=== PATIENT | female | born 1945 | race Caucasian/White ===

== ENCOUNTER 2016-11-05 07:28 | Day surgery (SDC) | payer MEDICARE, BC ==
[~2016-11-05 07:28] MED LIST: Lactated Ringers 1,000 ML IV SCH; Lidocaine 1%/Sod Bicarbonate in NS 8.4% 1 ML Syringe IV PRN; Sodium Chloride 0.9% 10 ML Syringe FLUSH PRN
[2016-11-05] MEDS ORDERED: Lidocaine 1% 2 ML SDV ONE (07:42)
[2016-11-05] MEDS ORDERED: fentaNYL 100 MCG/2 ML SDV ONE (07:42)
[2016-11-05] MEDS ORDERED: Midazolam 1 MG/ML 2 ML SDV ONE (07:42)
[2016-11-05] MEDS ORDERED: Propofol 200 MG/20 ML SDV ONE (07:42)
--- NOTE | 2016-11-05 07:55 | PCM.PREANE ---
Preanesthetic Assessment - Anesthesia/Transfusion/Family Hx Anesthesia History: Prior Anesthesia Without Reaction Type of Anesthesia Reaction: Excessive Nausea/Vomiting Family History of Anesthesia Reaction: No Transfusion History: No Prior Transfusion(s) Intubation History: Unknown - Review of Systems General: No Symptoms Pulmonary: No Symptoms Cardiovascular: No Symptoms (history of hypertension) Gastrointestinal: No symptoms (change in bowel habits noted.), Constipation Neurological: No Symptoms (history of stroke Sep 11, 2015/left leg drag and left pointer finger numbness noted as deficits. Patient states cognitive ability has been affected as well.), Headache, Numbness (both feet.), Gait Disturbance Other: Reports: Sinus Problem, Anxiety - Physical Assessment NPO Status Date: 11/04/16 NPO Status Time: 21:00 Pulse: 86 O2 Sat by Pulse Oximetry: 98 Respiratory Rate: 16 Blood Pressure: 145/73 Temperature: 36.7 C Vital Signs: Last Vital Signs Temp 36.7 C 11/05/16 07:33 Pulse 86 11/05/16 07:33 Resp 16 11/05/16 07:33 BP 145/73 H 11/05/16 07:33 Pulse Ox 98 11/05/16 07:33 Height: 1.65 m Weight: 61.825 kg ASA Class: 3 Mental Status: Alert & Oriented x3 Airway Class: Mallampati = 2 Dentition: Reports: Blackwell(s) Thyro-Mental Finger Breadths: 3 Mouth Opening Finger Breadths: 3 ROM/Head Extension: Full Lungs: Clear to auscultation, Normal respiratory effort Cardiovascular: Regular Rate, Regular Rhythm - Lab Values: Reviewed and noted. - Imaging/EKG Impressions: EKG: sinus rhythm rate =59. Unremarkable echocardiogram report noted. - Allergies Allergies/Adverse Reactions: Allergies Allergy/AdvReac Type Severity Reaction Status Date / Time codeine Allergy Unknown Vomiting Verified 11/04/16 15:42 hydromorphone HCl Allergy Unknown Adbominal Verified 11/04/16 15:42 [From Dilaudid] Upset, Diaphoresis, Nausea enoxaparin [From Lovenox] Allergy Cannot Verified 11/04/16 15:42 Remember hydrocodone Allergy Cannot Verified 11/04/16 15:42 Remember - Anesthesia Plan Pre-Op Medication Ordered: None - Acknowledgements Anesthesia Type Planned: MAC Pt an Appropriate Candidate for the Planned Anesthesia: Yes Alternatives and Risks of Anesthesia Discussed w Pt/Guardian: Yes Pt/Guardian Understands and Agrees with Anesthesia Plan: Yes PreAnesthesia Questionnaire HEENT History: Reports: Impaired vision, Other (see below) Other HEENT History: wears hearing aide and only 1 present on arrival Cardiovascular History: Reports: High cholesterol, Hypertension, Other (see below) Other Cardiovascular History: hypokalemia Respiratory History: Reports: None Gastrointestinal History: Reports: GERD Genitourinary History: Reports: Urinary incontinence, Other (see below) Other Genitourinary History: urgency - 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: Musculoskeletal History: Reports: Arthritis, Other (see below) Other Musculoskeletal History: carpal tunnel surgery, toe surgery Neurological History: Reports: Neuropathy, peripheral Psychiatric History: Reports: None Endocrine/Metabolic History: Reports: None Hematologic History: Reports: None Immunologic History: Reports: None Oncologic (Cancer) History: Reports: None Dermatologic History: Reports: None - Past Surgical History Head Surgeries/Procedures: HEENT Surgical History: Reports: Tonsillectomy GI Surgical History: Reports: Appendectomy, Cholecystectomy, Colonoscopy Female Surgical History: Reports: Hysterectomy, Oophorectomy Musculoskeletal Surgical History: Reports: Other (see below) Other Musculoskeletal Surgeries/Procedures:: back surgery - SUBSTANCE USE Smoking Status *Q: Never Smoker Days Per Week of Alcohol Use: 0 Recreational Drug Use History: No - HOME MEDS Home Medications: Home Meds Rosuvastatin Calcium [Crestor] 20 mg PO DAILY 03/23/14 [History] Pantoprazole [Protonix] 40 mg PO DAILY 09/11/15 [History] Aspirin [Halfprin] 81 mg PO DAILY 11/07/15 [History] Cholecalciferol (Vitamin D3) [Vitamin D3] 1,000 unit PO DAILY 11/04/16 [History] Cranberry Conc/C/Bacill Coag [Cranberry Tablet] 2 tab PO DAILY 11/04/16 [History ] Lisinopril/Hydrochlorothiazide [Lisinopril-Hctz 10-12.5 mg Tab] 1 tab PO DAILY 11/04/16 [History] Mirabegron [Myrbetriq] 25 mg PO DAILY 11/04/16 [History] Phenylephrine HCl [Hemorrhoidal Suppository] 1 supp RECTAL ASDIRECTED PRN [History] Potassium Chloride 10 meq PO DAILY 11/04/16 [History] - CURRENT (IN HOUSE) MEDS Current Meds: Current Medications Lactated Ringer's (Ringers, Lactated) 1,000 mls @ 125 mls/hr IV ASDIRECTED SAIDA Lidocaine/Sodium Bicarbonate (Buffered Lidocaine 1% In Ns 8.4%) 0.25 ml IV ONETIME PRN PRN Reason: Prior to IV Start Sodium Chloride (Saline Flush) 10 ml FLUSH ASDIRECTED PRN PRN Reason: Keep Vein Open Discontinued Medications Fentanyl (Sublimaze) Confirm Administered Dose 100 mcg .ROUTE .STK-MED ONE Stop: 11/05/16 07:43 Lidocaine HCl (Lidocaine 1%) Confirm Administered Dose 6 ml .ROUTE .STK-MED ONE Stop: 11/05/16 07:43 Midazolam HCl (Versed 1 Mg/Ml) Confirm Administered Dose 2 mg .ROUTE .STK-MED ONE Stop: 11/05/16 07:43 Propofol (Diprivan 20 Ml) Confirm Administered Dose 200 mg .ROUTE .STK-MED ONE Stop: 11/05/16 07:43 Preanesthetic Assessment - ANESTHESIA/TRANSFUSION/FAMILY HX Anesthesia/Transfusion History: Prior Anesthesia Reaction Type of Anesthesia Reaction: Reports: Excessive Nausea/Vomiting - PHYSICAL ASSESSMENT O2 Sat by Pulse Oximetry: 98 RR: 16 Vital Signs: Last Vital Signs Temp 36.7 C 11/05/16 07:33 Pulse 86 11/05/16 07:33 Resp 16 11/05/16 07:33 BP 145/73 H 11/05/16 07:33 Pulse Ox 98 11/05/16 07:33 Height: 1.65 m Weight: 68.175 kg - ALLERGIES Allergies/Adverse Reactions: Allergies Allergy/AdvReac Type Severity Reaction Status Date / Time codeine Allergy Unknown Vomiting Verified 11/04/16 15:42 hydromorphone HCl Allergy Unknown Adbominal Verified 11/04/16 15:42 [From Dilaudid] Upset, Diaphoresis, Nausea enoxaparin [From Lovenox] Allergy Cannot Verified 11/04/16 15:42 Remember hydrocodone Allergy Cannot Verified 11/04/16 15:42 Remember
--- NOTE | 2016-11-05 09:37 | PCM.OPNOTE ---
- General Post-Op/Procedure Note Date of Surgery/Procedure: 11/05/16 Operative Procedure(s): 1. EGD with gastric polypectomy x5 - using cold forceps , antral biopsy x2, and GE junction biopsy x2. 2.Colonsocopy with sigmoid polypectomy, and random rectal biopsy x2 - using cold forceps Findings: 1. multiple diminutive gastric polyps 2. sigmoid and descending colon diverticulosis 3. sigmoid polyp small < 5mm Pre Op Diagnosis: GERD symptoms with change in bowel habits Post-Op Diagnosis: 1. multiple diminutive gastric polyps. 2. diminutive sigmoid polyp. 3. descending, and sigmoid diverticulosis Anesthesia Technique: MAC, Moderate sedation Primary Surgeon: Wero Oro Pathology: 1. multiple gastric polyps, antral and GE junction biopsies 2. sigmoid polyp 3. rectal biopsies EBL in mLs: 1 Complications: None Condition: Good Free Text/Narrative:: After adequate IV sedation and analgesia was obtained the patient was placed on her left side. A lubricated upper endoscope was inserted through a bite-block into the esophagus and advanced under direct vision towards the stomach. Air was given here and I immediately saw several small glandular-type gastric polyps within the body of the stomach. The scope was advanced towards the antrum and into the duodenum. The second, and first parts of the duodenum were endoscopically normal with no inflammatory changes or mass lesions. The antrum likewise was unremarkable, but because of her history I took 2 random biopsies for histologic review. The polyps, which were seen in the body of stomach were all less than 5 mm in size. I removed 5 of them. There were a few smaller ones, which were left behind. In the retroflexed view there was no hiatal hernia. The fundus was unremarkable. The scope was withdrawn to the GE junction, which was normal. I took 2 random biopsies in this area for review. The body of the esophagus was endoscopically normal. [employer] photographs were taken for the patient and for the record. Air was removed, as I finished this procedure, which she tolerated well. Perianal inspection and digital rectal examination were performed next and were unremarkable. A lubricated colonoscope was inserted into the rectum and advanced to the cecum without difficulty. The bowel preparation was adequate. The cecum, right colon, transverse colons were endoscopically normal with no mass lesions seen. The descending colon had a few scattered diverticuli. The sigmoid had the most diverticuli, which were slightly larger and were associated with slight spasticity of the sigmoid with hypertrophied muscle. There were no inflammatory changes seen in these areas. There was a small, sigmoid polyp, which was removed with cold forceps. The rectum was unremarkable , but I took 2 random biopsies of the rectum for review. Electric[employer] photographs were taken for the patient and for the record. There were no procedural complications.
--- NOTE | 2016-11-05 09:41 | PCM48HPAN ---
Post Anesthesia Note - EVALUATION WITHIN 48HRS OF ANESTHETIC Vital Signs in Normal Range: Yes Patient Participated in Evaluation: Yes Respiratory Function Stable: Yes Airway Patent: Yes Cardiovascular Function Stable: Yes Hydration Status Stable: Yes Pain Control Satisfactory: Yes Nausea and Vomiting Control Satisfactory: Yes Mental Status Recovered: Yes
[2016-11-05 10:11] VITALS: BP 123/60
== END 2016-11-05 10:21 | disposition home or self-care (01) ==
LOC: JD.SDS 07:28
PROVIDERS: ATTEND Surgery
PROC: 0DB68ZZ Excision of Stomach, Via Natural or Artificial Opening Endoscopic (ICD-10-PCS; principal; 2016-11-05)
PROC: 0DBP8ZZ Excision of Rectum, Via Natural or Artificial Opening Endoscopic (ICD-10-PCS; 2016-11-05)
PROC: 0DBN8ZZ Excision of Sigmoid Colon, Via Natural or Artificial Opening Endoscopic (ICD-10-PCS; 2016-11-05)
DX: K31.7 Polyp of stomach and duodenum (principal); K29.50 Unspecified chronic gastritis without bleeding; K63.89 Other specified diseases of intestine; K62.89 Other specified diseases of anus and rectum; K57.30 Diverticulosis of large intestine without perforation or abscess without bleeding; M19.90 Unspecified osteoarthritis, unspecified site; I10 Essential (primary) hypertension; E78.00 Pure hypercholesterolemia, unspecified; E87.6 Hypokalemia; K59.00 Constipation, unspecified; Z86.73 Personal history of transient ischemic attack (TIA), and cerebral infarction without residual deficits; Z88.5 Allergy status to narcotic agent; Z88.6 Allergy status to analgesic agent; Z88.8 Allergy status to other drugs, medicaments and biological substances; Z79.82 Long term (current) use of aspirin; Z79.899 Other long term (current) drug therapy; Z90.49 Acquired absence of other specified parts of digestive tract; Z90.710 Acquired absence of both cervix and uterus; Z90.722 Acquired absence of ovaries, bilateral; Z90.89 Acquired absence of other organs; Z98.890 Other specified postprocedural states
CPT/HCPCS: 43239; 45380; 88305; J3010; J7120; 00810; J2250; J2704

== ENCOUNTER 2017-07-30 12:59 | Emergency (ER) | payer MEDICARE, BC, OTHER ==
--- NOTE | 2017-07-30 13:14 | EDM.PDOC ---
ED HPI GENERAL MEDICAL PROBLEM - General Chief Complaint: Chest Pain Stated Complaint: CHEST PAIN/LEFT ARM PAIN Time Seen by Provider: 07/30/17 13:13 - History of Present Illness INITIAL COMMENTS - FREE TEXT/NARRATIVE: 72-year-old female presents emergency room with chest pain. This chest pain is been on and off for the last several days this started on Thursday no 4 days ago and comes and goes. She cannot recall any specific activity that makes it worse. She has associated neck tightness and discomfort with this and at times she has pain into her left arm. The patient has had a stroke affecting her left side. Patient has no prior history of known coronary artery disease she's had chest pain in the past and has been evaluated for this. Is uncertain if she's had recent stress test. She hasn't had any new stroke. The patient became somewhat concerned about her overall situation took an extra baby aspirin at approximately 9 AM this morning. Other Treatments [employer]ICER: 162 mg asa Left Chest Pain Score (Numeric/FACES): 6 - Related Data Allergies Allergy/AdvReac Type Severity Reaction Status Date / Time codeine Allergy Unknown Vomiting Verified 11/05/16 07:56 hydromorphone HCl Allergy Unknown Adbominal Verified 11/05/16 07:56 [From Dilaudid] Upset, Diaphoresis, Nausea enoxaparin [From Lovenox] Allergy Cannot Verified 11/05/16 07:56 Remember hydrocodone Allergy Cannot Verified 11/05/16 07:56 Remember Home Meds: Home Meds Rosuvastatin Calcium [Crestor] 20 mg PO DAILY 03/23/14 [History] Pantoprazole [ProTONIX] 40 mg PO DAILY 09/11/15 [History] Aspirin [Halfprin] 81 mg PO DAILY 11/07/15 [History] Cholecalciferol (Vitamin D3) [Vitamin D3] 1,000 unit PO DAILY 11/04/16 [History] Lisinopril/Hydrochlorothiazide [Lisinopril-Hctz 10-12.5 mg Tab] 10 - 12.5 mg PO DAILY 11/04/16 [History] Sucralfate [Carafate] 1 gm PO QIDACANDBED #60 tablet 07/30/17 [Rx] Vitamin B Complex 1 each PO DAILY 07/30/17 [History] Past Medical History HEENT History: Reports: Impaired Vision, Other (See Below) Other HEENT History: wears hearing aide and only 1 present on arrival Cardiovascular History: Reports: High Cholesterol, Hypertension, Other (See Below) Other Cardiovascular History: hypokalemia Respiratory History: Reports: None Gastrointestinal History: Reports: GERD Genitourinary History: Reports: Urinary Incontinence, Other (See Below) Other Genitourinary History: urgency - after stroke in Aug 2015 [employer]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: Musculoskeletal History: Reports: Arthritis, Other (See Below) Other Musculoskeletal History: carpal tunnel surgery, toe surgery Neurological History: Reports: Neuropathy, Peripheral Psychiatric History: Reports: None Endocrine/Metabolic History: Reports: None Hematologic History: Reports: None Immunologic History: Reports: None Oncologic (Cancer) History: Reports: None Dermatologic History: Reports: None - Past Surgical History Musculoskeletal Surgical History: Reports: Other (See Below) Social & Family History - Family History Cardiac: Reports: Heart Failure, Hypertension Neurological: Reports: Alzheimers Disease, CVA Psychiatric: Reports: Other (See Below) Other Psychiatric Family History: alcoholism Endocrine/Metabolic: Reports: Diabetes, Type I Oncologic: Reports: Brain - Tobacco Use Smoking Status *Q: Never Smoker Years of Tobacco use: 2 - Alcohol Use Days Per Week of Alcohol Use: 0 - Recreational Drug Use Recreational Drug Use: No - Living Situation & Occupation Living situation: Reports: , with Spouse Occupation: Retired ED ROS GENERAL - Review of Systems Review Of Systems: See Below Constitutional: Reports: No Symptoms HEENT: Reports: No Symptoms Respiratory: Reports: No Symptoms, Other (Her pain does not appear to be pleuritic in nature) Cardiovascular: Reports: Chest Pain Endocrine: Reports: No Symptoms GI/Abdominal: Reports: No Symptoms : Reports: No Symptoms Neurological: Reports: Other (He hasdifficulty and chronic left sided weakness compared to the right but basically gets around pretty good) Psychiatric: Reports: No Symptoms Hematologic/Lymphatic: Reports: No Symptoms ED EXAM, GENERAL - Physical Exam Exam: See Below Exam Limited By: No Limitations General Appearance: Alert, No Apparent Distress Head: Atraumatic, Normocephalic Neck: Normal Inspection, Supple, Non-Tender, Full Range of Motion. No: Lymphadenopathy (L), Lymphadenopathy (R) Respiratory/Chest: No Respiratory Distress, Lungs Clear, Normal Breath Sounds, Other (She has some palpable chest wall discomfort over the left side of the sternum this seems to duplicate a lot of her discomfort) Cardiovascular: Regular Rate, Rhythm, No Edema, No Murmur GI/Abdominal: Normal Bowel Sounds, Soft, Non-Tender Back Exam: Normal Inspection, Other (She has some spasm and tightness in the spinous muscles of the surgical region also has some discomfort in to her musculature the goes from her neck and her shoulders.) Extremities: Normal Inspection, No Pedal Edema Neurological: Other (She has some mild left-sided weakness this is reported a her family is normal) Psychiatric: Normal Affect, Normal Mood EKG INTERPRETATION EKG Date: 07/30/17 Rhythm: NSR Waves: Normal P-Wave: Present QRS: Normal ST-T: Normal QT: Normal Comparison: No Change Course - Vital Signs Last Recorded V/S: Last Vital Signs Temp 36.5 C 07/30/17 13:12 Pulse 68 07/30/17 13:12 Resp 21 H 07/30/17 13:12 BP 140/69 07/30/17 13:36 Pulse Ox 97 07/30/17 13:12 - Orders/Labs/Meds Orders: Active Orders 24 hr Category Date Time Status EKG Documentation Completion [RC] STAT Care 07/30/17 13:29 Active Lactated Ringers [Ringers, Lactated] 1,000 ml Med 07/30/17 13:30 Active IV ASDIRECTED Nitroglycerin [Nitrostat] Med 07/30/17 13:27 Active 0.4 mg SL Q5M PRN Medication Orders Lactated Ringer's (Ringers, Lactated) 1,000 mls @ 50 mls/hr IV ASDIRECTED SAIDA Last Admin: 07/30/17 13:36 Dose: 50 mls/hr Nitroglycerin (Nitrostat) 0.4 mg SL Q5M PRN PRN Reason: Chest Pain Last Admin: 07/30/17 13:36 Dose: 0.4 mg Labs: Laboratory Tests 07/30/17 07/30/17 07/30/17 Range/Units 13:10 13:10 13:10 WBC 7.94 (3.98-10.04) K/mm3 RBC 4.69 (3.98-5.22) M/mm3 Hgb 13.9 (11.2-15.7) gm/L Hct 42.9 (34.1-44.9) % MCV 91.5 (79.4-94.8) fl MCH 29.6 (25.6-32.2) pg MCHC 32.4 (32.2-35.5) g/dl RDW Std Deviation 42.7 (36.4-46.3) fL Plt Count 303 (182-369) K/mm3 MPV 10.0 (9.4-12.3) fl Neutrophils % (Manual) 57 (40-60) % Band Neutrophils % 0 (0-10) % Lymphocytes % (Manual) 40 (20-40) % Atypical Lymphs % 0 % Monocytes % (Manual) 3 (2-10) % Eosinophils % (Manual) 0 L (0.7-5.8) % Basophils % (Manual) 0 L (0.1-1.2) Platelet Estimate Adequate RBC Morph Comment Normal PT 10.0 (8.0-13.0) SECONDS INR 0.92 APTT 28 (22-36) SECONDS Sodium 143 (136-145) mEq/L Potassium 3.7 (3.5-5.1) mEq/L Chloride 106 (98-107) mEq/L Carbon Dioxide 31 (21-32) mEq/L Anion Gap 9.7 (5-15) BUN 18 (7-18) mg/dL Creatinine 0.7 (0.55-1.02) mg/dL Est Cr Clr Drug Dosing 67.29 mL/min Estimated GFR (MDRD) > 60 (>60) mL/min BUN/Creatinine Ratio 25.7 H (14-18) Glucose 98 (80-115) mg/dL Calcium 9.6 (8.5-10.1) mg/dL Total Bilirubin 0.6 (0.2-1.0) mg/dL AST 13 L (15-37) U/L ALT 18 (14-59) U/L Alkaline Phosphatase 61 (46-116) U/L Troponin I < 0.017 (0.00-0.056) ng/mL Total Protein 7.0 (6.4-8.2) g/dl Albumin 3.9 (3.4-5.0) g/dl Globulin 3.1 gm/dL Albumin/Globulin Ratio 1.3 (1-2) Meds: Medications Generic Name Dose Route Start Last Admin Trade Name Freq PRN Reason Stop Dose Admin Lactated Ringer's 1,000 mls @ 50 mls/hr 07/30/17 13:30 07/30/17 13:36 Ringers, Lactated IV 50 mls/hr ASDIRECTED SAIDA Administration Nitroglycerin 0.4 mg 07/30/17 13:27 07/30/17 13:36 Nitrostat SL 0.4 mg Q5M PRN Administration Chest Pain Discontinued Medications Generic Name Dose Route Start Last Admin Trade Name Frecosme PRN Reason Stop Dose Admin Aspirin 162 mg 07/30/17 13:27 07/30/17 13:38 Aspirin PO 07/30/17 13:28 162 mg ONETIME ONE Administration Al Hydroxide/Mg Hydroxide 30 0 ml 07/30/17 14:13 07/30/17 14:26 ml/ Lidocaine HCl 15 ml PO 07/30/17 14:14 45 ml ONETIME ONE Administration - Re-Assessments/Exams Free Text/Narrative Re-Assessment/Exam: 07/30/17 14:09 Labs including a troponin negative chest x-ray normal, albeit somewhat rotated. We will try a GI cocktail as she is still having some epigastric discomfort however the pressure in the chest is gone. This resolved after a single nitroglycerin. 07/30/17 15:18 Patient had good improvement with GI cocktail. This fracture chest discomfort goes a little fits related to esophageal or gastrointestinal pathology but this is somewhat suspected I cannot exclude cardiovascular causes did discuss checking a second troponin the patient would like to go home. She needs to discuss with her primary provider when her last stress test was done because I'm not finding information she thinks it was done after her stroke. At this point we'll discharge home with Carafate to help with her stomach. Departure - Departure Time of Disposition: 15:20 Disposition: Home, Self-Care 01 Clinical Impression: Atypical chest pain, Dyspepsia Prescriptions: Sucralfate [Carafate] 1 gm PO QIDACANDBED #60 tablet Referrals: Milla Galaviz NP [Primary Care Provider] - Forms: ED Department Discharge Additional Instructions: Return to emergency room with any questions problems worsening symptoms. Follow-up with your regular provider this next week and discuss if another stress test is indicated and to clarify when your last one was done. Try heating pads to your Neck see if this helps. Sometimes alternating heat with ice works well. He been started on Carafate this has to be taken 4 times a day before each meal and at bedtime take your other routine medications at least an hour before the Carafate or 2 hours after the Carafate. Take your Protonix one hour before your morning meal. This may improve the overall effectiveness of this medication. - My Orders Last 24 Hours: My Active Orders 07/30/17 13:27 Nitroglycerin [Nitrostat] 0.4 mg SL Q5M PRN 07/30/17 13:29 EKG Documentation Completion [RC] STAT 07/30/17 13:30 Lactated Ringers [Ringers, Lactated] 1,000 ml IV ASDIRECTED - Assessment/Plan Last 24 Hours: My Active Orders 07/30/17 13:27 Nitroglycerin [Nitrostat] 0.4 mg SL Q5M PRN 07/30/17 13:29 EKG Documentation Completion [RC] STAT 07/30/17 13:30 Lactated Ringers [Ringers, Lactated] 1,000 ml IV ASDIRECTED
[2017-07-30] MEDS ORDERED: Nitroglycerin 0.4 MG Tab.SL SL PRN (13:27)
[2017-07-30] MEDS ORDERED: Aspirin 81 MG Tab.Chew PO ONE (13:27)
[2017-07-30] MEDS ORDERED: Lactated Ringers 1,000 ML IV SCH (13:30)
[2017-07-30 13:39] VITALS: BP 140/69
[2017-07-30] MEDS ORDERED: Alum Hydrox/Mag Hydrox/Simeth 30 ML, Lidocaine 2% 15 ML PO ONE ×2 (14:13)
--- NOTE | 2017-07-30 14:39 | CR ---
Chest: Portable view of the chest was obtained. Comparison: Prior chest x-ray of 11/07/15. Heart size is normal. Tortuous thoracic aorta is seen. Lungs are clear. Degenerative spurring is noted within the spine. Surgical clips are seen from prior cholecystectomy. Impression: 1. Nothing acute is appreciated on portable chest x-ray. Diagnostic code #2
== END 2017-07-30 15:45 | disposition home or self-care (01) ==
LOC: JD.ED 12:59
DX: R07.89 Other chest pain (principal); R10.13 Epigastric pain; I10 Essential (primary) hypertension; E78.00 Pure hypercholesterolemia, unspecified; K21.9 Gastro-esophageal reflux disease without esophagitis; Z79.82 Long term (current) use of aspirin; Z79.899 Other long term (current) drug therapy; Z88.5 Allergy status to narcotic agent; Z88.8 Allergy status to other drugs, medicaments and biological substances
CPT/HCPCS: 36415; 71010; 80053; 84484; 85025; 85610; 85730; 93005; 96360; 96361; 99285; A9270; J7120; 93010; 99284

== ENCOUNTER 2018-10-04 08:07 | Inpatient (IN) | payer MEDICARE, OTHER ==
[~2018-10-04 08:07] MED LIST changes: +Acetaminophen 325 MG Tab PO SCH; +Acetaminophen/HYDROcodone 325-5 MG Tab PO PRN; +Bisacodyl 5 MG Tab PO PRN; +Cyclobenzaprine 10 MG Tab PO PRN; +HYDROmorphone 1 MG/ML Syringe IVPUSH PRN; +Ketorolac 15 MG/ML SDV IVPUSH PRN; +Lidocaine 1%/Sod Bicarbonate in NS 8.4% 1 ML Syringe IDERM PRN; -Lidocaine 1%/Sod Bicarbonate in NS 8.4% 1 ML Syringe IV PRN; +Magnesium Hydroxide 400 MG/5 ML Susp 30 ML Cup PO PRN; +Ondansetron 4 MG/2 ML SDV IVPUSH PRN; +Pregabalin 25 MG Cap PO SCH; +Sennosides 8.6 MG Tab PO PRN; +oxyCODONE ER 10 MG TAB.ER PO SCH
[2018-10-04] MEDS ORDERED: EPINEPHrine 1 MG/ML SDV ONE (08:48)
[2018-10-04] MEDS ORDERED: Ropivacaine 0.5% 5 MG/ML 30 ML SDV ONE (08:49)
[2018-10-04] MEDS ORDERED: Lidocaine 1% 4 ML ONE ×2 (09:15→09:45)
[2018-10-04] MEDS ORDERED: Scopolamine 1.5 MG Transdermal Patch TOP ONE (09:18)
--- NOTE | 2018-10-04 09:23 | PCM.PREANE ---
Preanesthetic Assessment - Procedure Proposed Procedure: left reverse total shoulder - Anesthesia/Transfusion/Family Hx Anesthesia History: Prior Anesthesia Reaction Type of Anesthesia Reaction: Excessive Nausea/Vomiting Family History of Anesthesia Reaction: No Transfusion History: No Prior Transfusion(s) Intubation History: Unknown - Review of Systems General: No Symptoms Pulmonary: No Symptoms Cardiovascular: No Symptoms Gastrointestinal: Abdominal Pain (epigastric) Neurological: Other (stroke 2016-weakness left leg ) Other: Reports: Neck Pain (since stroke) - Physical Assessment NPO Status Date: 10/03/18 NPO Status Time: 18:00 O2 Sat by Pulse Oximetry: 97 Respiratory Rate: 16 Vital Signs: Last Vital Signs Temp 98.5 F 10/04/18 08:21 Pulse 81 10/04/18 08:21 Resp 16 10/04/18 08:21 BP 145/78 H 10/04/18 08:21 Pulse Ox 97 10/04/18 08:21 Height: 5 ft 4 in Weight: 68.492 kg ASA Class: 2 Mental Status: Alert & Oriented x3 Airway Class: Mallampati = 1 Dentition: Reports: Normal Dentition Thyro-Mental Finger Breadths: 3 Mouth Opening Finger Breadths: 3 ROM/Head Extension: Full Lungs: Clear to Auscultation, Normal Respiratory Effort Cardiovascular: Regular Rate, Regular Rhythm - Allergies Allergies/Adverse Reactions: Allergies Allergy/AdvReac Type Severity Reaction Status Date / Time enoxaparin [From Lovenox] Allergy Rash Verified 10/01/18 14:03 morphine Allergy Nausea and Verified 10/01/18 14:03 Vomiting potassium Allergy Cardiac Verified 10/01/18 14:03 Arrest codeine AdvReac Unknown Vomiting Verified 10/01/18 14:03 - Blood Blood Available: No - Acknowledgements Anesthesia Type Planned: General Anesthesia Pt an Appropriate Candidate for the Planned Anesthesia: Yes Alternatives and Risks of Anesthesia Discussed w Pt/Guardian: Yes Pt/Guardian Understands and Agrees with Anesthesia Plan: Yes PreAnesthesia Questionnaire HEENT History: Reports: Impaired Vision, Other (See Below) Other HEENT History: wears hearing aide and only 1 present on arrival Cardiovascular History: Reports: High Cholesterol, Hypertension, Other (See Below) Other Cardiovascular History: hypokalemia Respiratory History: Reports: None Gastrointestinal History: Reports: GERD Genitourinary History: Reports: Urinary Incontinence, Other (See Below) Other Genitourinary History: urgency - after stroke in Aug 2015 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: Musculoskeletal History: Reports: Arthritis, Other (See Below) Other Musculoskeletal History: carpal tunnel surgery, toe surgery Neurological History: Reports: CVA, Neuropathy, Peripheral Other Neuro History: right side with left side deficeit Psychiatric History: Reports: None, Anxiety, Depression Endocrine/Metabolic History: Reports: None Hematologic History: Reports: None Immunologic History: Reports: None Oncologic (Cancer) History: Reports: None Dermatologic History: Reports: None - Past Surgical History Head Surgeries/Procedures: Reports: None HEENT Surgical History: Reports: Tonsillectomy Respiratory Surgical History: Reports: None GI Surgical History: Reports: Appendectomy, Cholecystectomy, Colonoscopy Female Surgical History: Reports: Hysterectomy, Oophorectomy, Other (See Below) Other Female Surgeries/Procedures: bladder stimulator, bladder sling Endocrine Surgical History: Reports: None Musculoskeletal Surgical History: Reports: Other (See Below) Other Musculoskeletal Surgeries/Procedures:: back surgery, foot surgery x 2, left ankle fracture Oncologic Surgical History: Reports: None Dermatological Surgical History: Reports: None - SUBSTANCE USE Smoking Status *Q: Former Smoker (quit 1975) Tobacco Use Within Last Twelve Months: No Second Hand Smoke Exposure: No Days Per Week of Alcohol Use: 0 Recreational Drug Use History: No - HOME MEDS Home Medications: Home Meds Aspirin [Halfprin] 81 mg PO DAILY 10/01/18 [History] Calcium Carbonate [Calcium] 600 mg PO BID 10/01/18 [History] Cholecalciferol (Vitamin D3) [Vitamin D3] 5,000 unit PO DAILY 10/01/18 [History] Coconut Oil 1 tsp PO TID 10/01/18 [History] Gabapentin [Neurontin] 300 mg PO BEDTIME 10/01/18 [History] Lisinopril/Hydrochlorothiazide [Lisinopril-Hctz 10-12.5 mg Tab] 1 tab PO DAILY 10/01/18 [History] Pantoprazole Sodium [Protonix] 40 mg PO DAILY 10/01/18 [History] Rosuvastatin Calcium [Crestor] 40 mg PO DAILY 10/01/18 [History] - CURRENT (IN HOUSE) MEDS Current Meds: Current Medications Acetaminophen (Tylenol) 975 mg PO ONETIME SAIDA Stop: 10/04/18 16:00 Hydrocodone Bitart/Acetaminophen ([place] 325-5 Mg) 1 - 2 tab PO Q4H PRN PRN Reason: Pain Aspirin (Ecotrin) 325 mg PO DAILY SAIDA Bisacodyl (Dulcolax) 5 mg PO DAILY PRN PRN Reason: Constipation Cyclobenzaprine HCl (Flexeril) 10 mg PO TID PRN PRN Reason: Spasms Docusate Sodium (Colace) 100 mg PO BID [facility] Hydromorphone HCl (Dilaudid) 0.2 mg IVPUSH Q2H PRN PRN Reason: Pain (moderate 4-6) Lactated Ringer's (Ringers, Lactated) 1,000 mls @ 125 mls/hr IV ASDIRECTED [facility] Cefazolin Sodium/Dextrose 2 gm (/ Premix) 50 mls @ 100 mls/hr IV Q8H [facility] Stop: 10/04/18 23:14 Ketorolac Tromethamine (Toradol) 15 mg IVPUSH Q6H PRN PRN Reason: Pain Lidocaine/Sodium Bicarbonate (Buffered Lidocaine 1% In Ns 8.4%) 0.25 ml IDERM ONETIME PRN PRN Reason: Prior to IV Start Stop: 10/04/18 18:00 Magnesium Hydroxide (Milk Of Magnesia) 30 ml PO BID PRN PRN Reason: Constipation Ondansetron HCl (Zofran) 4 mg IVPUSH Q6H PRN PRN Reason: Nausea/Vomiting Oxycodone HCl (Oxycontin) 10 mg PO ONETIME [facility] Stop: 10/04/18 16:00 Pregabalin (Lyrica) 50 mg PO ONETIME [facility] Stop: 10/04/18 16:00 Senna (Senna) 8.6 mg PO BID PRN PRN Reason: Constipation Sodium Chloride (Saline Flush) 10 ml FLUSH ASDIRECTED PRN PRN Reason: Keep Vein Open Discontinued Medications Epinephrine HCl (Adrenalin) Confirm Administered Dose 1 mg .ROUTE .STK-MED ONE Stop: 10/04/18 08:49 Ropivacaine (Naropin 0.5%) Confirm Administered Dose 30 ml .ROUTE .STK-MED ONE Stop: 10/04/18 08:50
[2018-10-04] MEDS ORDERED: fentaNYL 100 MCG/2 ML SDV ONE ×2 (09:41→11:26)
[2018-10-04] MEDS ORDERED: Propofol 200 MG/20 ML SDV ONE (09:41)
[2018-10-04] MEDS ORDERED: Midazolam 1 MG/ML 2 ML SDV ONE (09:42)
[2018-10-04] MEDS ORDERED: Ondansetron 4 MG/2 ML SDV ONE (09:45)
[2018-10-04] MEDS ORDERED: Dexamethasone 4 MG/ML 5 ML MDV ONE (09:45)
[2018-10-04] MEDS ORDERED: Bupivacaine 0.25% 30 ML SDV ONE (09:57)
--- NOTE | 2018-10-04 10:33 | PCM.SN ---
- Free Text/Narrative Note: Left Interscalene nerve block Date: 10-04-18 Start: 957 Time Out: 957 Stop: 1010 Surgical Procedure: Left reverse total shoulder arthroplasty Diagnosis: Left shoulder OA Current Procedure: Left interscalene block under US guidance for postoperative pain control Patient chart reviewed, risk/benefits discussed with patient, consent obtained. Patient positioned supine, monitors/alarms on, oxygen placed via nasal cannula at 2 LPM. IV sedation administered: Versed 1mg IV Fentanyl 100 mcg IV Left shoulder prepped with chloraprep x1. Sterile drapes placed with aseptic technique. Under US guidance, left subclavian artery visualized along with the brachial plexus. Plexus followed cephalad up to C6 cricoid level, and area localized with 2mls of 1% lidocaine. 22gauge 2 inch stimiplex needle inserted under US and guided to brachial plexus C5-C6 trunks with 0.44mV with stimulation of biceps noted. Stimulation abolished at 0.2mVs. 1ml of Normal Saline injected with loss of stimulation up to 0.7mA. Incremental injection of 5mls with negative aspiration prior to each injection of 0.5% ropivacaine with 1 :200,000 epinephrine. Total volume=30mls. Refer to nurses notes for vital signs. Everton Xiong CRNA
[2018-10-04] MEDS ORDERED: ceFAZolin 1 GM Vial ONE (11:12)
[2018-10-04] MEDS ORDERED: Lactated Ringers 1,000 ML ONE (11:28)
[2018-10-04] MEDS: Iodine/Sodium Iodide 2% Tincture 30 ML Bottle ONE ×2 (11:37→11:48)
[2018-10-04] MEDS: ceFAZolin 1 GM Vial ONE ×2 (11:37→11:50)
[2018-10-04] MEDS: Vancomycin 1 GM SDV ONE ×2 (11:38→11:55)
--- NOTE | 2018-10-04 12:32 | CR ---
Left shoulder: Two fluoroscopic spot views were obtained utilizing C-arm device. Study shows placement of a reverse shoulder prosthesis. Components appear aligned. Underlying bony structures are grossly intact. Fluoroscopy time given as 2.7 seconds. Impression: 1. Procedural study as noted above. Diagnostic code #2
--- NOTE | 2018-10-04 12:33 | PCM.POSTAN ---
POST ANESTHESIA ASSESSMENT - MENTAL STATUS Mental Status: Alert, Oriented - VITAL SIGNS Pulse Rate: 95 SaO2: 96 Resp Rate: 16 Blood Pressure: 156/91 Temperature: 36.2 C - RESPIRATORY Respiratory Status: Respiratory Rate WNL, Airway Patent, O2 Saturation Stable, Supplemental Oxygen - CARDIOVASCULAR CV Status: Pulse Rate WNL, Blood Pressure Stable - GASTROINTESTINAL GI Status: No Symptoms - PAIN Pain Score: 0 - POST OP HYDRATION Hydration Status: Adequate & Stable
[2018-10-04] MEDS ORDERED: Promethazine 6.25 MG in Sodium Chloride 0.9% 50 ML IV PRN (12:40)
[2018-10-04] MEDS ORDERED: Meperidine 50 MG/ML Vial IVPUSH ONE (12:40)
[2018-10-04] MEDS ORDERED: fentaNYL 100 MCG/2 ML SDV IVPUSH PRN (12:40)
[2018-10-04] MEDS ORDERED: diphenhydrAMINE 50 MG/ML SDV IVPUSH PRN (12:40)
--- NOTE | 2018-10-04 13:02 | PCM.OPNOTE ---
- General Post-Op/Procedure Note Date of Surgery/Procedure: 10/04/18 Operative Procedure(s): left reverse total shoulder arthroplasty Pre Op Diagnosis: left shoulder rotator cuff tear arthropathy Post-Op Diagnosis: Same Anesthesia Technique: General ET Tube, Regional Block Primary Surgeon: Js Herbert Anesthesia Provider: Everton Xiong Completion Manager: Ritu Mejia Completion Manager: Marie Byers EBL in mLs: 150 Complications: None Condition: Good Free Text/Narrative:: size 6 stem with 2 mm left offset 36+4 small baseplate
--- NOTE | 2018-10-04 13:13 | CR ---
Left shoulder: Single AP view of the left shoulder was obtained. Reverse left shoulder prosthesis is seen. Small amount of soft tissue air is noted. Components of the prosthesis are aligned. Underlying bony structures are intact. Impression: 1. Satisfactory radiographic appearance of recently placed left shoulder prosthesis. Diagnostic code #2
--- NOTE | 2018-10-04 13:36 | OR ---
DATE OF OPERATION: 10/04/2018 SURGEON: Js Herbert MD PROCEDURE: Left reverse total shoulder arthroplasty. PREOPERATIVE DIAGNOSIS: Left shoulder rotator cuff tear arthropathy. POSTOPERATIVE DIAGNOSIS: Left shoulder rotator cuff tear arthropathy. ANESTHESIA TECHNIQUE: General endotracheal intubation with regional interscalene block. ANESTHESIA PROVIDER: Everton Xiong. ASSISTANTS: 1. Ritu Mejia PA-C. 2. Marie Byers LPN. ESTIMATED BLOOD LOSS: 150 mL. COMPLICATIONS: None. CONDITION: Stable. IMPLANTS: 1. Arthrex size 6 humeral stem 135-degree with 2 mm left offset. 2. 36 mm +4 glenosphere. 3. Small glenoid baseplate. DESCRIPTION OF PROCEDURE: The patient was identified in the preop holding area. The proper site was marked and identified by the surgeon. The patient was taken back to the operating theater where after adequate anesthesia, the patient's left upper extremity was sterilely prepped and draped in the usual sterile fashion. OR time-out was performed. The patient received 2 g IV Ancef. The patient was placed in the reverse Trendelenburg position. Standard deltopectoral incision was made and sized and it was taken down to the cephalic vein. The cephalic vein was retracted laterally. The deltopectoral interval was identified. The clavipectoral fascia was then incised. The conjoint tendon was retracted medially and the deltoid was retracted laterally. At this time, the anterior humeral circumflex vessels were identified and were ligated using 0 Vicryl stick tie. The biceps tendon was then identified. A subpectoral tenodesis was performed with a #2 FiberWire. A tenotomy was performed above the tenodesis site and using a curved Hamilton was resected all the way back to the level of the glenoid opening the rotator interval. The patient was noted to have full- thickness rotator cuff tear noted of the supraspinatus and infraspinatus. At this time, the humeral head was exposed and the humeral neck cut was then completed. It was found to be an adequate resection. Attention was turned to the glenoid. Posterior and anterior retractors were placed at the glenoid. Circumferentially the labrum was removed and all soft tissue was removed as well as the capsulectomy anteriorly and inferiorly. Guide pin was then placed in a center-center position of the glenoid. The central reamer was then utilized for a small glenoid baseplate and the peripheral reamer was then used for a small glenoid baseplate and was found to have adequate coverage and be in a satisfactory position. At this time, the small glenoid baseplate was impacted into place. The central nonlocking screw was placed and then the inferior and superior locking screws were placed in that order. It was found to have adequate purchase. Attention was turned back to the humerus starting with the broach, with a size 5, I was able to broach up to a size 6 which was found to be very rotationally stable. It was noted that we would need 2 mm left offset to center the humeral stem to the proximal portion. The 36 +4 mm glenosphere was then impacted into place and was found to be adequately seated. At this time, trial +3, 135-degree liner was done on the humeral side and was found to have adequate range of motion throughout with no signs of instability. At this time, the 135-degree size 6 stem was constructed on the back table with a 2 mm left offset. The +3 liner was then impacted into place and this was all impacted into the humerus. The humerus was then relocated to the glenohumeral joint and a C-arm fluoroscopy was then utilized showing it to be well seated with no signs of loosening or liftoff. Adequate saline was then irrigated through the wound along with 1 L dilute Betadine solution and 3 L of pulse lavage irrigation with Ancef. Topical tranexamic acid as well as vancomycin powder was placed. Marcaine was used subcutaneously, 2-0 Vicryl was used subcutaneously, and Prineo was used for closure of the skin. The patient tolerated the procedure well and sent to PACU in stable condition. OPERATION PERFORMED: ANESTHESIA: MMODAL /[id number]
--- NOTE | 2018-10-04 16:44 | PCM.CONS ---
H&P History of Present Illness - General Date of Service: 10/04/18 Admit Problem/Dx: Admission Diagnosis/Problem Admission Diagnosis/Problem Osteoarthritis of left shoulder Source of Information: Patient, Provider History Limitations: Reports: No Limitations - History of Present Illness Initial Comments - Free Text/Narative: Aleja is a 73 yo female patient of Dr. Herbert who is post-operative day 0 of L RTSA. Hospital medicine was consulted for post-operative medical care. At this time she is stable. Pain is controlled. She denies any chest pain, shortness of breath, palpitations, vomiting. She c/o of some nausea and dizziness, both have which improved. She carries a history of: CVA (2015), Urinary Incontinence, Anxiety, [place], Neuropathy, GERD, HTN, Depression. She is Former Smoker (quit 1974 ). She is a full code. Her PCP is Milla Galaviz NP in [place]. Left Shoulder Pain Score (Numeric/FACES): 6 - Related Data Allergies/Adverse Reactions: Allergies Allergy/AdvReac Type Severity Reaction Status Date / Time enoxaparin [From Lovenox] Allergy Rash Verified 10/04/18 14:15 codeine AdvReac Unknown Vomiting Verified 10/04/18 14:15 morphine AdvReac Nausea and Verified 10/04/18 14:15 Vomiting potassium AdvReac Cardiac Verified 10/04/18 14:15 Arrest Home Medications: Home Meds Calcium Carbonate [Calcium] 600 mg PO BID 10/01/18 [History] Cholecalciferol (Vitamin D3) [Vitamin D3] 5,000 unit PO DAILY 10/01/18 [History] Gabapentin [Neurontin] 300 mg PO BEDTIME 10/01/18 [History] Lisinopril/Hydrochlorothiazide [Lisinopril-Hctz 10-12.5 mg Tab] 1 tab PO DAILY 10/01/18 [History] Pantoprazole Sodium [Protonix] 40 mg PO DAILY 10/01/18 [History] Rosuvastatin Calcium [Crestor] 40 mg PO DAILY 10/01/18 [History] Acetaminophen/HYDROcodone [[place] 325-5 MG] 1 - 2 tab PO Q6H PRN #40 tablet 10/04 [Rx] Aspirin [Ecotrin] 325 mg PO DAILY #40 tab.ec 10/04/18 [Rx] Bisacodyl [Dulcolax] 5 mg PO DAILY PRN tablet 10/04/18 [Rx] Docusate Sodium [Colace] 100 mg PO BID cap 10/04/18 [Rx] Magnesium Hydroxide [Milk of Magnesia] 30 ml PO BID PRN cup 10/04/18 [Rx] Sennosides [Senna] 8.6 mg PO BID PRN tablet 10/04/18 [Rx] Past Medical History HEENT History: Reports: Impaired Vision Other HEENT History: wears hearing aide and only 1 present on arrival Cardiovascular History: Reports: High Cholesterol, Hypertension, Other (See Below) Other Cardiovascular History: hypokalemia Respiratory History: Reports: None Gastrointestinal History: Reports: GERD Genitourinary History: Reports: Urinary Incontinence, Other (See Below) Other Genitourinary History: urgency - 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: Musculoskeletal History: Reports: Arthritis, Other (See Below) Other Musculoskeletal History: carpal tunnel surgery, toe surgery Neurological History: Reports: CVA, Neuropathy, Peripheral Other Neuro History: right side with left side deficeit Psychiatric History: Reports: None, Anxiety, Depression Endocrine/Metabolic History: Reports: None Hematologic History: Reports: None Immunologic History: Reports: None Oncologic (Cancer) History: Reports: None Dermatologic History: Reports: None - Past Surgical History Head Surgeries/Procedures: Reports: None HEENT Surgical History: Reports: Tonsillectomy Respiratory Surgical History: Reports: None GI Surgical History: Reports: Appendectomy, Cholecystectomy, Colonoscopy Female Surgical History: Reports: Hysterectomy, Oophorectomy, Other (See Below) Other Female Surgeries/Procedures: bladder stimulator, bladder sling Endocrine Surgical History: Reports: None Musculoskeletal Surgical History: Reports: Other (See Below) Other Musculoskeletal Surgeries/Procedures:: back surgery, foot surgery x 2, left ankle fracture Oncologic Surgical History: Reports: None Dermatological Surgical History: Reports: None Social & Family History - Family History Cardiac: Reports: Heart Failure, Hypertension Neurological: Reports: Alzheimers Disease, CVA Psychiatric: Reports: Other (See Below) Other Psychiatric Family History: alcoholism Endocrine/Metabolic: Reports: Diabetes, Type I Oncologic: Reports: Brain - Tobacco Use Smoking Status *Q: Former Smoker (quit 1974) Used Tobacco, but Quit: Yes Month/Year Tobacco Last Used: 1974 Second Hand Smoke Exposure: No - Caffeine Use Caffeine Use: Reports: Soda - Alcohol Use Days Per Week of Alcohol Use: 0 - Recreational Drug Use Recreational Drug Use: No - Living Situation & Occupation Living situation: Reports: , with Spouse Occupation: Retired H&P Review of Systems - Review of Systems: Review Of Systems: See Below General: Reports: No Symptoms. Denies: Fever, Chills HEENT: Reports: No Symptoms Pulmonary: Reports: No Symptoms. Denies: Shortness of Breath, Cough Cardiovascular: Reports: No Symptoms. Denies: Chest Pain, Dyspnea on Exertion, Edema Gastrointestinal: Reports: Nausea. Denies: Abdominal Pain, Diarrhea, Vomiting Genitourinary: Reports: No Symptoms Musculoskeletal: Reports: No Symptoms Skin: Reports: No Symptoms Psychiatric: Reports: No Symptoms Neurological: Reports: Dizziness Hematologic/Lymphatic: Reports: No Symptoms Immunologic: Reports: No Symptoms Exam - Exam Exam: See Below - Vital Signs Vital Signs: Last Vital Signs Temp 98.3 F 10/04/18 16:23 Pulse 95 10/04/18 12:33 Resp 16 10/04/18 16:23 BP 115/43 L 10/04/18 16:00 Pulse Ox 96 10/04/18 16:23 Weight: 151 lb - Exam Quality Assessment: Supplemental Oxygen (1L NC), DVT Prophylaxis General: Alert, Oriented, 4 HEENT: Conjunctiva Clear, EACs Clear, EOMI, Hearing Intact, Mucosa Moist & [place] , Nares Patent, Normal Nasal Septum, Posterior Pharynx Clear, PERRLA Neck: Supple, Trachea Midline, 2 Lungs: Clear to Auscultation, Normal Respiratory Effort Cardiovascular: Regular Rate, Regular Rhythm GI/Abdominal Exam: Normal Bowel Sounds, Soft, Non-Tender, No Organomegaly, No Distention, No Abnormal Bruit, No Mass, Pelvis Stable (Female) Exam: Deferred Rectal (Female) Exam: Deferred Back Exam: Normal Inspection Extremities: Normal Inspection, Non-Tender, No Pedal Edema, Normal Capillary Refill, Limited Range of Motion (s/p L TSA) Peripheral Pulses: 2+: Radial (L), Radial (R), Posterior Tibial (L), Posterior Tibial (R), Dorsalis Pedis (L), Dorsalis Pedis (R) Skin: Warm, Dry, Intact, Other (bandage dry and intact) Neurological: Cranial Nerves Intact (grossly) Psychiatric: Alert, Normal Affect, Normal Mood Consult PN Assessment/Plan POD#: 0 Procedures: Procedures ASSAY OF MAGNESIUM (11/07/15) ASSAY OF SERUM POTASSIUM (10/09/16) ASSAY OF TROPONIN QUANT (07/30/17) ASSAY THYROID STIM HORMONE (09/30/16) CHEST X-RAY 1 VIEW FRONTAL (07/30/17) COLONOSCOPY AND BIOPSY (11/05/16) COMPLETE CBC W/AUTO DIFF WBC (07/30/17) COMPREHEN METABOLIC PANEL (07/30/17) CT ABD & PELV W/CONTRAST (11/07/15) CT HEAD/BRAIN W/O DYE (09/11/15) CT THORAX W/DYE (11/07/15) EGD BIOPSY SINGLE/MULTIPLE (11/05/16) ELECTROCARDIOGRAM TRACING (07/30/17) EMERGENCY DEPT VISIT (07/30/17) GAIT TRAINING THERAPY (11/07/15) HELICOBACTER PYLORI ANTIBODY (09/30/16) HYDRATE IV INFUSION ADD-ON (07/30/17) HYDRATION IV INFUSION INIT (07/30/17) MR-STAPH DNA AMP PROBE (09/21/18) OT EVALUATION (11/07/15) PROTHROMBIN TIME (07/30/17) PT EVALUATION (11/07/15) ROUTINE VENIPUNCTURE (07/30/17) THER/PROPH/DIAG INJ IV PUSH (11/07/15) THERAPEUTIC ACTIVITIES (11/07/15) THROMBOPLASTIN TIME PARTIAL (07/30/17) TISSUE EXAM BY PATHOLOGIST (11/05/16) TTE W/DOPPLER COMPLETE (11/07/15) TX/PRO/DX INJ NEW DRUG ADDON (11/07/15) URINALYSIS AUTO W/SCOPE (09/11/15) X-RAY EXAM OF ABDOMEN (09/30/16) (1) Status post total shoulder arthroplasty SNOMED Code(s): 559120518, 365402396 Code(s): Z96.619 - PRESENCE OF UNSPECIFIED ARTIFICIAL SHOULDER JOINT Priority: High Current Visit: Yes Qualifiers: Laterality: left Qualified Code(s): Z96.612 - Presence of left artificial shoulder joint Problem List Initiated/Reviewed/Updated: Yes Plan: I/P: Acute: S/P left total shoulder arthroplasty - post-operative day 0 -DVT prophylaxis and pain management per primary care team -PT/OT -IS/RT -Monitor oxygen saturation -Titrate oxygen as needed -Vital signs stable -Monitor labs: -Hgb 14.8 -GFR 60 Osteoarthritis of Shoulder -Pain management per primary care team Chronic: CVA (2016) Urinary Incontinence Anxiety [place] Neuropathy GERD HTN Depression Plan: CM for discharge planning GI prophylaxis: Protonix DVT/PE prophylaxis: ASA, BRUNO hose, SCD Home medications as indicated Other orders as listed above Routine AM labs She is a full code. PCP is Milla Galaviz NP in [place]. Thank you for allowing us to participate in the care of this patient!
[2018-10-04] MEDS: ceFAZolin 2 GM in Premix Bag 1 BAG IV SCH (17:57)
[2018-10-04] MEDS: Calcium Carbonate 600 MG Tab PO SCH (20:39)
[2018-10-04] MEDS: Docusate Sodium 100 MG Cap PO SCH (20:41)
[2018-10-04] MEDS ORDERED: Gabapentin 300 MG Cap PO SCH (21:00)
[2018-10-05] MEDS: ceFAZolin 2 GM in Premix Bag 1 BAG IV SCH ×2 (01:18→11:01)
--- NOTE | 2018-10-05 06:27 | PCM.CONSN ---
- General Info Date of Service: 10/05/18 Admission Dx/Problem (Free Text): Admission Diagnosis/Problem Admission Diagnosis/Problem Osteoarthritis of left shoulder Subjective Update: In to see Aleja. She is sitting up in the chair and has just finished with OT. She is doing well. No patient or nursing concerns. Functional Status: Reports: Pain Controlled, Tolerating Diet, Ambulating, Urinating, Incentive Spirometry. Denies: New Symptoms - Review of Systems General: Reports: No Symptoms. Denies: Fever, Fatigue, Malaise, Chills HEENT: Reports: No Symptoms. Denies: Headaches, Sore Throat Pulmonary: Reports: No Symptoms. Denies: Shortness of Breath, Pleuritic Chest Pain, Cough, Sputum, Wheezing Cardiovascular: Reports: No Symptoms. Denies: Chest Pain, Palpitations Gastrointestinal: Reports: No Symptoms. Denies: Abdominal Pain, Constipation, Diarrhea, Nausea, Vomiting Genitourinary: Reports: No Symptoms. Denies: Pain Musculoskeletal: Reports: No Symptoms Skin: Reports: No Symptoms Neurological: Reports: No Symptoms. Denies: Confusion Psychiatric: Reports: No Symptoms - Patient Data Vitals - Most Recent: Last Vital Signs Temp 98.2 F 10/05/18 04:02 Pulse 75 10/05/18 04:02 Resp 16 10/05/18 04:02 BP 107/70 10/05/18 04:02 Pulse Ox 99 10/05/18 04:02 Weight - Most Recent: 155 lb 14.4 oz I&O - Last 24 Hours: Intake & Output 10/04/18 10/04/18 10/05/18 14:59 22:59 06:59 Intake Total 120 800 Output Total 850 Balance 120 -50 Med Orders - Current: Current Medications Hydrocodone Bitart/Acetaminophen (Grethel 325-5 Mg) 1 - 2 tab PO Q4H PRN PRN Reason: Pain Aspirin (Ecotrin) 325 mg PO DAILY [facility] Bisacodyl (Dulcolax) 5 mg PO DAILY PRN PRN Reason: Constipation Calcium Carbonate/Glycine (Calcium Carbonate) 600 mg PO BID [facility] Last Admin: 10/04/18 20:39 Dose: 600 mg Cholecalciferol (Vitamin D3) 5,000 unit PO DAILY [facility] Cyclobenzaprine HCl (Flexeril) 10 mg PO TID PRN PRN Reason: Spasms Diphenhydramine HCl (Benadryl) 25 mg IVPUSH Q6H PRN PRN Reason: Pruritis Docusate Sodium (Colace) 100 mg PO BID [facility] Last Admin: 10/04/18 20:41 Dose: 100 mg Gabapentin (Neurontin) 300 mg PO BEDTIME [facility] Last Admin: 10/04/18 20:42 Dose: 300 mg Hydrochlorothiazide (Hydrochlorothiazide) 12.5 mg PO DAILY [facility] Hydromorphone HCl (Dilaudid) 0.2 mg IVPUSH Q2H PRN PRN Reason: Pain (moderate 4-6) Cefazolin Sodium/Dextrose 2 gm (/ Premix) 50 mls @ 100 mls/hr IV Q8H [facility] Stop: 10/05/18 10:29 Last Admin: 10/05/18 01:18 Dose: 100 mls/hr Promethazine HCl 6.25 mg/ (Sodium Chloride) 50.25 mls @ 100 mls/hr IV ONETIME PRN PRN Reason: Nausea/Vomiting Last Admin: 10/04/18 13:16 Dose: 100 mls/hr Ketorolac Tromethamine (Toradol) 15 mg IVPUSH Q6H PRN PRN Reason: Pain Lisinopril (Prinivil) 10 mg PO DAILY [facility] Magnesium Hydroxide (Milk Of Magnesia) 30 ml PO BID PRN PRN Reason: Constipation Ondansetron HCl (Zofran) 4 mg IVPUSH Q6H PRN PRN Reason: Nausea/Vomiting Pantoprazole Sodium (Protonix) 40 mg PO DAILY [facility] Rosuvastatin Calcium (Crestor) 40 mg PO DAILY [facility] Senna (Senna) 8.6 mg PO BID PRN PRN Reason: Constipation Sodium Chloride (Saline Flush) 10 ml FLUSH ASDIRECTED PRN PRN Reason: Keep Vein Open Discontinued Medications Acetaminophen (Tylenol) 975 mg PO ONETIME [facility] Stop: 10/04/18 16:00 Last Admin: 10/04/18 09:28 Dose: 975 mg Bupivacaine HCl (Marcaine 0.25%) Confirm Administered Dose 30 ml .ROUTE .STK- MED ONE Stop: 10/04/18 09:58 Cefazolin Sodium (Ancef) Confirm Administered Dose 2 gm .ROUTE .STK-MED ONE Stop: 10/04/18 09:58 Last Admin: 10/04/18 11:50 Dose: 2 gm Cefazolin Sodium (Ancef) Confirm Administered Dose 2 gm .ROUTE .STK-MED ONE Stop: 10/04/18 11:13 Dexamethasone (Dexamethasone) Confirm Administered Dose 20 mg .ROUTE .STK-MED ONE Stop: 10/04/18 09:46 Epinephrine HCl (Adrenalin) Confirm Administered Dose 1 mg .ROUTE .STK-MED ONE Stop: 10/04/18 08:49 Fentanyl (Sublimaze) Confirm Administered Dose 100 mcg .ROUTE .STK-MED ONE Stop: 10/04/18 09:42 Fentanyl (Sublimaze) Confirm Administered Dose 100 mcg .ROUTE .STK-MED ONE Stop: 10/04/18 11:27 Fentanyl (Sublimaze) 50 mcg IVPUSH Q5M PRN PRN Reason: Pain Stop: 10/04/18 16:00 Lactated Ringer's (Ringers, Lactated) 1,000 mls @ 125 mls/hr IV ASDIRECTED [facility] Last Admin: 10/04/18 09:24 Dose: 125 mls/hr Lidocaine HCl (Xylocaine-Mpf 1%) Confirm Administered Dose 4 mls @ as directed .ROUTE .STK-MED ONE Stop: 10/04/18 09:16 Lidocaine HCl (Xylocaine-Mpf 1%) Confirm Administered Dose 4 mls @ as directed .ROUTE .STK-MED ONE Stop: 10/04/18 09:46 Lactated Ringer's (Ringers, Lactated) Confirm Administered Dose 1,000 mls @ as directed .ROUTE .STK-MED ONE Stop: 10/04/18 11:29 Iodine (Iodine 2% Mild Tincture) Confirm Administered Dose 30 ml .ROUTE .STK- MED ONE Stop: 10/04/18 09:58 Last Admin: 10/04/18 11:48 Dose: 18 ml Lidocaine/Sodium Bicarbonate (Buffered Lidocaine 1% In Ns 8.4%) 0.25 ml IDERM ONETIME PRN PRN Reason: Prior to IV Start Stop: 10/04/18 18:00 Last Admin: 10/04/18 09:24 Dose: 0.25 ml Meperidine HCl (Meperidine) 12.5 mg IVPUSH ONETIME ONE Stop: 10/04/18 12:41 Last Admin: 10/04/18 15:06 Dose: Not Given Midazolam HCl (Versed 1 Mg/Ml) Confirm Administered Dose 2 mg .ROUTE .STK-MED ONE Stop: 10/04/18 09:43 Ondansetron HCl (Zofran) Confirm Administered Dose 4 mg .ROUTE .STK-MED ONE Stop: 10/04/18 09:46 Oxycodone HCl (Oxycontin) 10 mg PO ONETIME [facility] Stop: 10/04/18 16:00 Last Admin: 10/04/18 09:29 Dose: 10 mg Pregabalin (Lyrica) 50 mg PO ONETIME [facility] Stop: 10/04/18 16:00 Last Admin: 10/04/18 09:28 Dose: 50 mg Propofol (Diprivan 20 Ml) Confirm Administered Dose 200 mg .ROUTE .STK-MED ONE Stop: 10/04/18 09:42 Ropivacaine (Naropin 0.5%) Confirm Administered Dose 30 ml .ROUTE .STK-MED ONE Stop: 10/04/18 08:50 Scopolamine (Transderm-Scop) 1.5 mg TOP ONETIME ONE Stop: 10/04/18 09:19 Last Admin: 10/04/18 09:23 Dose: 1.5 mg Tranexamic Acid (Cyklokapron) Confirm Administered Dose 1,000 mg .ROUTE .STK- MED ONE Stop: 10/04/18 09:58 Last Admin: 10/04/18 12:01 Dose: 1,000 mg Vancomycin HCl (Vancomycin) Confirm Administered Dose 1 gm .ROUTE .STK-MED ONE Stop: 10/04/18 09:58 Last Admin: 10/04/18 11:55 Dose: 1 gm - Exam Quality Assessment: DVT Prophylaxis General: Alert, Oriented, Cooperative, No Acute Distress HEENT: Pupils Equal, Pupils Reactive, EOMI, Mucous Membr. Moist/Stokes Neck: Supple, Trachea Midline, No JVD Lungs: Clear to Auscultation, Normal Respiratory Effort Cardiovascular: Regular Rate, Regular Rhythm GI/Abdominal Exam: Normal Bowel Sounds, Soft, Non-Tender, No Distention, No Abnormal Bruit (Female) Exam: Deferred Back Exam: Normal Inspection, Full Range of Motion Extremities: No Pedal Edema, Normal Capillary Refill, Leg Pain, Limited Range of Motion, Other (Bandage in place on left shoulder. Cooling pack in place. ) Peripheral Pulses: 2+: Radial (L), Radial (R), Dorsalis Pedis (L), Dorsalis Pedis (R) Skin: Warm, Dry, Intact Wound/Incisions: Dressing Dry and Intact, No Drainage Neurological: No New Focal Deficit Psy/Mental Status: Alert, Normal Affect, Normal Mood Consult PN Assessment/Plan POD#: 1 Procedures: Procedures ASSAY OF MAGNESIUM (11/07/15) ASSAY OF SERUM POTASSIUM (10/09/16) ASSAY OF TROPONIN QUANT (07/30/17) ASSAY THYROID STIM HORMONE (09/30/16) CHEST X-RAY 1 VIEW FRONTAL (07/30/17) COLONOSCOPY AND BIOPSY (11/05/16) COMPLETE CBC W/AUTO DIFF WBC (07/30/17) COMPREHEN METABOLIC PANEL (07/30/17) CT ABD & PELV W/CONTRAST (11/07/15) CT HEAD/BRAIN W/O DYE (09/11/15) CT THORAX W/DYE (11/07/15) EGD BIOPSY SINGLE/MULTIPLE (11/05/16) ELECTROCARDIOGRAM TRACING (07/30/17) EMERGENCY DEPT VISIT (07/30/17) GAIT TRAINING THERAPY (11/07/15) HELICOBACTER PYLORI ANTIBODY (09/30/16) HYDRATE IV INFUSION ADD-ON (07/30/17) HYDRATION IV INFUSION INIT (07/30/17) MR-STAPH DNA AMP PROBE (09/21/18) OT EVALUATION (11/07/15) PROTHROMBIN TIME (07/30/17) PT EVALUATION (11/07/15) ROUTINE VENIPUNCTURE (07/30/17) THER/PROPH/DIAG INJ IV PUSH (11/07/15) THERAPEUTIC ACTIVITIES (11/07/15) THROMBOPLASTIN TIME PARTIAL (07/30/17) TISSUE EXAM BY PATHOLOGIST (11/05/16) TTE W/DOPPLER COMPLETE (11/07/15) TX/PRO/DX INJ NEW DRUG ADDON (11/07/15) URINALYSIS AUTO W/SCOPE (09/11/15) X-RAY EXAM OF ABDOMEN (09/30/16) (1) Status post total shoulder arthroplasty SNOMED Code(s): 421625265, 282409639 Code(s): Z96.619 - PRESENCE OF UNSPECIFIED ARTIFICIAL SHOULDER JOINT Priority: High Current Visit: Yes Qualifiers: Laterality: left Qualified Code(s): Z96.612 - Presence of left artificial shoulder joint Problem List Initiated/Reviewed/Updated: Yes Plan: I/P: Acute: S/P left total shoulder arthroplasty - post-operative day 1 -DVT prophylaxis and pain management per primary care team -PT/OT -IS/RT -Monitor oxygen saturation -Titrate oxygen as needed -Vital signs stable -Monitor labs: -Pre-operative Hgb 14.8; Now 12.7 -Pre-operative GFR 60; Now 55 Osteoarthritis of Shoulder -Pain management per primary care team Chronic: CVA (2016) Urinary Incontinence Anxiety [place] Neuropathy GERD HTN Depression Plan: CM for discharge planning GI prophylaxis: Protonix DVT/PE prophylaxis: ASA, BRUNO hose, SCD Home medications as indicated Other orders as listed above Routine AM labs She is a full code. PCP is Milla Galaviz NP in [place]. From a hospitalist standpoint Aleja is doing well. She has been up ambulating and is working with therapies. She off of oxygen and has urinated. Vital signs and labs remain stable. She has been using her IS. She is cleared for discharge pending PT/OT and primary team agreement. Thank you for allowing us to participate in the care of this patient!
[2018-10-05] MEDS ORDERED: Lisinopril 10 MG Tab PO SCH (09:00)
[2018-10-05] MEDS ORDERED: Pantoprazole 40 MG Tab.CR PO SCH (09:00)
[2018-10-05] MEDS ORDERED: Hydrochlorothiazide 12.5 MG Cap PO SCH (09:00)
[2018-10-05] MEDS ORDERED: Cholecalciferol (Vitamin D3) 5,000 UNIT Tab PO SCH (09:00)
[2018-10-05] MEDS ORDERED: Rosuvastatin 10 MG Tab PO SCH (09:00)
[2018-10-05] MEDS ORDERED: Aspirin 325 MG Tab.EC PO SCH (09:00)
[2018-10-05] MEDS: Docusate Sodium 100 MG Cap PO SCH (09:09)
[2018-10-05] MEDS: Calcium Carbonate 600 MG Tab PO SCH (09:09)
--- NOTE | 2018-10-05 09:33 | PCM48HPAN ---
Post Anesthesia Note - EVALUATION WITHIN 48HRS OF ANESTHETIC Vital Signs in Normal Range: Yes Patient Participated in Evaluation: Yes Respiratory Function Stable: Yes Airway Patent: Yes Cardiovascular Function Stable: Yes Hydration Status Stable: Yes Pain Control Satisfactory: Yes Nausea and Vomiting Control Satisfactory: Yes Mental Status Recovered: Yes - COMMENTS/OBSERVATIONS Free Text/Narrative:: Pt doing well dressing herself with therapy. Patient still denies pain and still feels the block is still working. She is moving her arm but does not have much pain.
[2018-10-05 12:15] VITALS: BP 114/58
== END 2018-10-05 13:55 | disposition home or self-care (01) | DRG 483 ==
LOC: JD.MS 08:07
PROVIDERS: ADMIT Orthopaedic Surgery; ATTEND Orthopaedic Surgery
PROC: 0RRK00Z Replacement of Left Shoulder Joint with Reverse Ball and Socket Synthetic Substitute, Open Approach (ICD-10-PCS; principal; 2018-10-04)
PROC: 3E0T3BZ Introduction of Anesthetic Agent into Peripheral Nerves and Plexi, Percutaneous Approach (ICD-10-PCS; 2018-10-04)
DX: M19.012 Primary osteoarthritis, left shoulder (principal); G62.9 Polyneuropathy, unspecified; M75.102 Unspecified rotator cuff tear or rupture of left shoulder, not specified as traumatic; E78.00 Pure hypercholesterolemia, unspecified; G89.18 Other acute postprocedural pain; F41.8 Other specified anxiety disorders; E78.5 Hyperlipidemia, unspecified; K21.9 Gastro-esophageal reflux disease without esophagitis; I69.344 Monoplegia of lower limb following cerebral infarction affecting left non-dominant side; R32 Unspecified urinary incontinence; H91.90 Unspecified hearing loss, unspecified ear; K59.00 Constipation, unspecified; R39.15 Urgency of urination; Z88.5 Allergy status to narcotic agent; Z88.6 Allergy status to analgesic agent; Z90.710 Acquired absence of both cervix and uterus; Z79.899 Other long term (current) drug therapy; Z90.49 Acquired absence of other specified parts of digestive tract; Z79.82 Long term (current) use of aspirin; Z88.8 Allergy status to other drugs, medicaments and biological substances; Z87.891 Personal history of nicotine dependence
CPT/HCPCS: 01638; 36415; 64415; 73020-26-LT; 73020-LT; 76000; 76000-26; 80053; 85027; 94760; 94762; 97110-GP; 97161-GP; 97165-GO; 97530-GP; 97535-GO; A9270-GY; J0171; J0690; J1100; J1885; J2001; J2250; J2405; J2550; J2704; J2795; J3010; J3370; J3490; J7050; J7120

== ENCOUNTER 2019-09-26 18:50 | Emergency (ER) | payer MEDICARE, OTHER ==
[2019-09-26 19:28] VITALS: BP 137/94; PULSE 107
--- NOTE | 2019-09-26 21:11 | EDM.PDOC ---
ED HPI GENERAL MEDICAL PROBLEM - General Chief Complaint: Genitourinary Problem Stated Complaint: POSS UTI FEVER Time Seen by Provider: 09/26/19 20:29 Source of Information: Reports: Patient, RN Notes Reviewed History Limitations: Reports: No Limitations - History of Present Illness INITIAL COMMENTS - FREE TEXT/NARRATIVE: Patient is a 74-year-old female who presents to the ED for the evaluation of ongoing urinary issues. The patient states that she was evaluated last week Thursday, and started on nitrofurantoin for a urinary tract infection. Patient states she has been taking this medication as prescribed however she has not seen improvement in symptoms. She states that today she started with, but she states that her kidneys ache on both sides. All over body shaking at around 4 PM. She has not had any fevers or chills at home she sees Dr. Bar in [place]. Patient is not complaining of any nausea/vomiting/diarrhea, patient states she is still able to eat and drink okay at this time. Patient notes that she has a history of ongoing bladder issues. Bilateral Lower Flank Pain Score (Numeric/FACES): 8 - Related Data Allergies Allergy/AdvReac Type Severity Reaction Status Date / Time enoxaparin [From Lovenox] Allergy Rash Verified 09/26/19 19:28 codeine AdvReac Unknown Vomiting Verified 09/26/19 19:28 morphine AdvReac Nausea and Verified 09/26/19 19:28 Vomiting potassium AdvReac Cardiac Verified 09/26/19 19:28 Arrest Home Meds: Home Meds Calcium Carbonate [Calcium] 600 mg PO BID 10/01/18 [History] Cholecalciferol (Vitamin D3) [Vitamin D3] 5,000 unit PO DAILY 10/01/18 [History] Lisinopril/Hydrochlorothiazide [Lisinopril-Hctz 10-12.5 mg Tab] 10 - 12.5 tab PO DAILY 10/01/18 [History] Pantoprazole Sodium [Protonix] 40 mg PO DAILY 10/01/18 [History] Rosuvastatin Calcium [Crestor] 20 mg PO DAILY 10/01/18 [History] Sennosides [Senna] 8.6 mg PO BID PRN tablet 10/04/18 [Rx] bisacodyL [Dulcolax] 5 mg PO DAILY PRN tablet 02/11/19 [Rx] Aspirin [Ecotrin EC] 81 mg PO DAILY 03/25/19 [History] Nitrofurantoin Macrocrystal [Nitrofurantoin] 100 mg PO BID 09/26/19 [History] levoFLOXacin [Levaquin] 500 mg PO DAILY #9 tab 09/26/19 [Rx] Past Medical History HEENT History: Reports: Hard of Hearing, Impaired Vision Other HEENT History: wears hearing aide and only 1 present on arrival Cardiovascular History: Reports: High Cholesterol, Hypertension, Other (See Below) Other Cardiovascular History: hypokalemia Gastrointestinal History: Reports: Chronic Constipation, GERD Genitourinary History: Reports: Urinary Incontinence, UTI, Recurrent, Other ( See Below) Other Genitourinary History: urgency - after stroke in Aug 2015 [employer] 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 - Past Surgical History HEENT Surgical History: Reports: Tonsillectomy GI Surgical History: Reports: Appendectomy, Cholecystectomy, Colonoscopy Female Surgical History: Reports: Hysterectomy, Oophorectomy, Other (See Below) Other Female Surgeries/Procedures: bladder stimulator, bladder sling Musculoskeletal Surgical History: Reports: Shoulder Surgery, Other (See Below) Other Musculoskeletal Surgeries/Procedures:: back surgery, foot surgery x 2, left ankle fracture Social & Family History - Family History Cardiac: Reports: Heart Failure, Hypertension Neurological: Reports: Alzheimers Disease, CVA Psychiatric: Reports: Other (See Below) Other Psychiatric Family History: alcoholism Endocrine/Metabolic: Reports: Diabetes, Type I Oncologic: Reports: Brain - Tobacco Use Smoking Status *Q: Never Smoker - Caffeine Use Caffeine Use: Reports: Soda - Recreational Drug Use Recreational Drug Use: No - Living Situation & Occupation Living situation: Reports: , with Spouse Occupation: Retired ED ROS GENERAL - Review of Systems Review Of Systems: See Below Constitutional: Denies: Fever, Chills Respiratory: Denies: Shortness of Breath Cardiovascular: Denies: Chest Pain GI/Abdominal: Denies: Abdominal Pain, Constipation, Diarrhea, Nausea, Vomiting : Reports: Flank Pain (L and R flank pain), Frequency, Urgency. Denies: Dysuria Neurological: Denies: Headache ED EXAM, RENAL/ - Physical Exam Exam: See Below Exam Limited By: No Limitations General Appearance: Alert, WD/WN, No Apparent Distress Eye Exam: Bilateral Eye: EOMI, Normal Inspection, PERRL Throat/Mouth: Normal Inspection, Normal Lips, Normal Teeth, Normal Gums, Normal Oropharynx, Normal Voice, No Airway Compromise Head: Atraumatic, Normocephalic Neck: Normal Inspection Respiratory/Chest: No Respiratory Distress, Lungs Clear, Normal Breath Sounds, Chest Non-Tender Cardiovascular: Normal Peripheral Pulses, Regular Rate, Rhythm, No Murmur GI/Abdominal: Normal Bowel Sounds, Soft, Non-Tender, No Distention, No Mass Back Exam: Normal Inspection, CVA Tenderness (L), CVA Tenderness (R) Extremities: Normal Inspection, Normal Capillary Refill Neurological: Alert, Oriented, Normal Cognition, No Motor/Sensory Deficits Psychiatric: Normal Affect, Normal Mood Skin Exam: Warm, Dry, Intact, Normal Color, No Rash Course - Vital Signs Last Recorded V/S: Last Vital Signs Temp 97.2 F 09/26/19 19:23 Pulse 107 H 09/26/19 19:23 Resp 16 09/26/19 19:23 BP 137/94 H 09/26/19 19:23 Pulse Ox 96 09/26/19 19:23 - Orders/Labs/Meds Orders: Active Orders 24 hr Category Date Time Status Insert Shaw Catheter [Insert Urinary Catheter] [OM.PC] Care 09/26/19 20:00 Ordered Q24H Urinary Catheter Assessment [RC] ASDIRECTED Care 09/26/19 19:50 Active CULTURE URINE [RM] Stat Lab 09/26/19 20:18 Received Labs: Laboratory Tests 09/26/19 09/26/19 09/26/19 Range/Units 20:05 20:05 20:18 WBC 11.72 H (3.98-10.04) K/mm3 RBC 4.81 (3.98-5.22) M/mm3 Hgb 14.2 (11.2-15.7) gm/dl Hct 44.5 (34.1-44.9) % MCV 92.5 (79.4-94.8) fl MCH 29.5 (25.6-32.2) pg MCHC 31.9 L (32.2-35.5) g/dl RDW Std Deviation 43.3 (36.4-46.3) fL Plt Count 326 (182-369) K/mm3 MPV 9.8 (9.4-12.3) fl Neut % (Auto) 83.8 H (34.0-71.1) % Lymph % (Auto) 8.3 L (19.3-51.7) % Kane % (Auto) 7.1 (4.7-12.5) % Eos % (Auto) 0.3 L (0.7-5.8) Baso % (Auto) 0.2 (0.1-1.2) % Neut # (Auto) 9.83 H (1.56-6.13) K/mm3 Lymph # (Auto) 0.97 L (1.18-3.74) K/mm3 Kane # (Auto) 0.83 H (0.24-0.36) K/mm3 Eos # (Auto) 0.04 (0.04-0.36) K/mm3 Baso # (Auto) 0.02 (0.01-0.08) K/mm3 Manual Slide Review Abnormal smear Sodium 140 (136-145) mEq/L Potassium 3.4 L (3.5-5.1) mEq/L Chloride 101 (98-107) mEq/L Carbon Dioxide 27 (21-32) mEq/L Anion Gap 15.4 H (5-15) BUN 21 H (7-18) mg/dL Creatinine 1.0 (0.55-1.02) mg/dL Est Cr Clr Drug Dosing 43.91 mL/min Estimated GFR (MDRD) 55 (>60) mL/min BUN/Creatinine Ratio 21.0 H (14-18) Glucose 162 H (83-115) mg/dL Calcium 9.5 (8.5-10.1) mg/dL Urine Color Yellow (Yellow) Urine Appearance Slt cloudy H (Clear) Urine pH 5.5 (5.0-8.0) Ur Specific [place] > or = 1.030 (1.005-1.030) Urine Protein 2+ H (Negative) Urine Glucose (UA) Negative (Negative) Urine Ketones Trace H (Negative) Urine Occult Blood 2+ H (Negative) Urine Nitrite Negative (Negative) Urine Bilirubin Negative (Negative) Urine Urobilinogen 0.2 (0.2-1.0) Ur Leukocyte Esterase 3+ H (Negative) Urine RBC 5-10 H (0-5) /hpf Urine WBC 40-50 H (0-5) /hpf Urine WBC Clumps Occasional (NOT SEEN) /hpf Ur Squamous Epith Cells 0-5 (0-5) /hpf Urine Bacteria Few (FEW) /hpf Urine Mucus Moderate H (FEW) /hpf Meds: Medications Discontinued Medications Generic Name Dose Route Start Last Admin Trade Name Freq PRN Reason Stop Dose Admin Levofloxacin 500 mg 09/26/19 22:02 Levaquin PO 09/26/19 22:03 ONETIME ONE - Re-Assessments/Exams Free Text/Narrative Re-Assessment/Exam: 09/26/19 21:13 Patient presents to the ED for evaluation of ongoing urinary issues. A urinalysis was obtained at time of triage, and shows a possible ongoing infection, she still has 3+ leukocyte Estrace present, nitrite was negative white blood cell count in her urine is 40-50 per high-power field. Patient CBC is elevated at 11.72, with no discernible left shift. At this time I do believe she would benefit from a change in antibiotics to a fluoroquinolone for suspected pyelonephritis, and the abdomen pelvis CT without contrast has been ordered for further evaluation. 09/26/19 22:01 CT report is back, and there is no free fluid or inflammatory change noted around the kidneys, however due to her having some renal collection system abnormalities, I do believe a change in antibiotics is warranted. 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 Departure - Departure Time of Disposition: 22:04 Disposition: Home, Self-Care 01 Condition: Fair Clinical Impression: Pyelonephritis - Discharge Information *PRESCRIPTION DRUG MONITORING PROGRAM REVIEWED*: No *COPY OF PRESCRIPTION DRUG MONITORING REPORT IN PATIENT BRYNN: No Prescriptions: levoFLOXacin [Levaquin] 500 mg PO DAILY #9 tab Instructions: Pyelonephritis, Adult, [id number] Referrals: PCP,None [Primary Care Provider] - Forms: ED Department Discharge Additional Instructions: You have been evaluated in the ED for your urinary symptoms. Your urinalysis was consistent with an acute urinary tract infection. Your urine was sent for culture, and you will be notified if you should need a change in your antibiotic. You may take AZO for urinary pain relief. This is available over the counter, and can be attained at any retail store like [employer] or any pharmacy. Please be aware that this medication will make your urine turn orange. Please stop taking the nitrofurantoin that you were already prescribed. You have been given a prescription for Levofloxacin, 500 mg 1 tablet daily for 10 days. This has been electronically sent to the [facility] pharmacy located near [facility]. Please increase your oral fluid intake and try to stay adequately hydrated. Please return to the ED if your symptoms change or worsen. Sepsis Event Note - Evaluation Sepsis Screening Result: No Definite Risk - Focused Exam Vital Signs: Vital Signs Temp Pulse Resp BP Pulse Ox 09/26/19 19:23 97.2 F 107 H 16 137/94 H 96 Date Exam was Performed: 09/26/19 Time Exam was Performed: 22:06
--- NOTE | 2019-09-26 21:38 | CT ---
CT abdomen and pelvis Technique: Multiple axial sections were obtained from above the dome of the diaphragm inferiorly to the pubic symphysis. Intravenous and oral contrast was not utilized. Study has been performed as a ureteral stone protocol. Comparison: Prior CT abdomen and pelvis exam of 11/07/15. Dilated collecting system on the left side is seen. On prior CT study this is felt to represent a cyst which I now believe represents a dilated collecting system due to a functional UPJ obstruction. This finding is stable from previous exam. No ureteral dilatation or ureteral stone is seen. Small parapelvic cyst is noted within the right kidney measuring 2.0 cm. Other findings: Visualized lung bases show nothing acute. Liver contains no focal abnormality. Spleen appears within normal limits. Surgical clips are seen from prior cholecystectomy. Adrenal glands show no nodule. Pancreas is within normal limits. Aorta shows atherosclerotic calcification without aneurysm. No retroperitoneal adenopathy or mesenteric abnormalities are seen. No pelvic mass or adenopathy is seen. Mild diverticulosis is seen with this sigmoid colon without inflammatory change of diverticulitis. Appendix is not visualized with certainty. No free fluid or inflammatory change is appreciated. Bone window settings were reviewed which shows scattered degenerative change within the spine. Impression: 1. Dilated left-sided collecting system. 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 This finding is stable from prior exam. No renal calculi or ureteral stone is seen. No ureteral dilatation is seen. 2. Other findings which are believed to be incidental as noted above. Nothing acute is appreciated on noncontrast CT study of the abdomen and pelvis. Diagnostic code #2 Study was dictated in [place] Standard Time
[2019-09-26] MEDS ORDERED: Levofloxacin 500 MG Tab PO ONE (22:02)
== END 2019-09-26 22:47 | disposition home or self-care (01) ==
LOC: JD.ED 18:50
DX: N12 Tubulo-interstitial nephritis, not specified as acute or chronic (principal); E78.00 Pure hypercholesterolemia, unspecified; I10 Essential (primary) hypertension; Z88.8 Allergy status to other drugs, medicaments and biological substances; Z88.5 Allergy status to narcotic agent; Z79.82 Long term (current) use of aspirin; Z86.73 Personal history of transient ischemic attack (TIA), and cerebral infarction without residual deficits
CPT/HCPCS: 36415; 51701; 74176; 80048; 81001; 85025; 87086; 87088; 87184; 87186; 99284; A9270; 99283

== ENCOUNTER 2020-11-03 09:04 | Emergency (ER) | payer MEDICARE, OTHER ==
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
[2020-11-03] MEDS ORDERED: Diphtheria,Pertussis(Acell),Tetanus Vaccine 0.5 ML Syringe IM ONE (09:47)
[2020-11-03] MEDS ORDERED: fentaNYL 100 MCG/2 ML SDV IVPUSH ONE ×2 (09:47→12:01)
[2020-11-03] MEDS ORDERED: Ondansetron 4 MG/2 ML SDV IVPUSH ONE (09:47)
--- NOTE | 2020-11-03 10:43 | CR ---
Chest: Portable view of the chest was obtained. Comparison: Prior chest x-ray of 07/30/17. Heart size and mediastinum are normal. Left shoulder prosthesis is seen. Surgical clips are seen within the upper right abdomen. Scattered degenerative change within the spine is seen. Lungs are clear with no acute parenchymal change. Impression: 1. Findings as noted above. 2. Nothing acute is seen on frontal chest x-ray. Diagnostic code #2
[2020-11-03] MEDS ORDERED: Lidocaine 2% Jelly 10 ML Urojet MUCMEM ONE (12:53)
[2020-11-03] MEDS ORDERED: Diphtheria,Pertussis(Acell),Tetanus Vaccine 0.5 ML Syringe ONE (14:48)
[2020-11-03 16:56] VITALS: BP 155/69; PULSE 87
== END 2020-11-03 15:11 | disposition home or self-care (01) ==
LOC: JD.ED 09:04
DX: T20.17XA Burn of first degree of neck, initial encounter (principal); E78.00 Pure hypercholesterolemia, unspecified; I10 Essential (primary) hypertension; K21.9 Gastro-esophageal reflux disease without esophagitis; M19.90 Unspecified osteoarthritis, unspecified site; G62.9 Polyneuropathy, unspecified; Z88.8 Allergy status to other drugs, medicaments and biological substances; Z88.5 Allergy status to narcotic agent; Z79.82 Long term (current) use of aspirin; Z79.899 Other long term (current) drug therapy; Z86.73 Personal history of transient ischemic attack (TIA), and cerebral infarction without residual deficits; Z23 Encounter for immunization; X08.8XXA Exposure to other specified smoke, fire and flames, initial encounter
CPT/HCPCS: 16020; 36415; 71045; 80053; 85025; 90471; 90715; 96374; 96375; 99284; J2405; J3010

== ENCOUNTER 2020-11-06 10:17 | Emergency (ER) | payer MEDICARE, OTHER ==
[2020-11-06 10:33] VITALS: BP 143/66; PULSE 94
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
== END 2020-11-06 11:55 | disposition home or self-care (01) ==
LOC: JD.ED 10:17
DX: T25.212A Burn of second degree of left ankle, initial encounter (principal); T22.212A Burn of second degree of left forearm, initial encounter; T22.211A Burn of second degree of right forearm, initial encounter; T24.201A Burn of second degree of unspecified site of right lower limb, except ankle and foot, initial encounter; E78.00 Pure hypercholesterolemia, unspecified; I10 Essential (primary) hypertension; K21.9 Gastro-esophageal reflux disease without esophagitis; M19.90 Unspecified osteoarthritis, unspecified site; Z87.891 Personal history of nicotine dependence; Z88.5 Allergy status to narcotic agent; Z88.8 Allergy status to other drugs, medicaments and biological substances; Z79.82 Long term (current) use of aspirin; Z79.899 Other long term (current) drug therapy; X08.8XXA Exposure to other specified smoke, fire and flames, initial encounter
CPT/HCPCS: 16020; 99283; 99283-25

== ENCOUNTER 2021-08-19 11:14 | Emergency (ER) | payer MEDICARE, OTHER ==
[2021-08-19 11:36] VITALS: BP 155/71; PULSE 65
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
--- NOTE | 2021-08-19 12:39 | CR ---
Chest and left ribs: Frontal view of the chest was obtained as well as 3 views of the left ribs. Comparison: No prior rib exam is available, prior chest x-ray of 11/03/20 was utilized. Surgical clips are seen from prior cholecystectomy. Degenerative change is noted throughout the spine. Left shoulder prosthesis is seen. Lungs are clear with no acute parenchymal change. Heart size and mediastinum are within normal limits. Bony structures are somewhat osteopenic. No discrete left-sided rib fracture is seen. Impression: 1. Nothing acute is seen on frontal chest x-ray. 2. No discrete rib abnormality is seen. Nondisplaced rib fracture could be missed. Diagnostic code #2
--- NOTE | 2021-08-19 12:45 | CR ---
Left shoulder: 2 views of the left shoulder were obtained. Comparison: Prior left shoulder study of 10/04/18. Stable left shoulder prosthesis is seen. Prosthesis appears normal in alignment. Underlying bony structures appear intact. Small calcification is noted off the inferior acromion process which is most likely old. Scattered degenerative endplate spurring is noted within the spine. Impression: 1. Nothing acute is seen on left shoulder study. Diagnostic code #2
[2021-08-19] MEDS ORDERED: Ketorolac 30 MG/ML SDV IM ONE (12:56)
--- NOTE | 2021-08-20 20:07 | PCM.EKG ---
#1 Interpretation EKG Date: 08/19/21 Time: 11:30 Rhythm: NSR Rate (Beats/Min): 62 [place]: Normal P-Wave: Present QRS: Normal ST-T: Normal QT: Normal EKG Interpretation Comments: Per Dr. Wetzel interpretation: Sinus rhythm at 62 bpm
== END 2021-08-19 14:07 | disposition home or self-care (01) ==
LOC: JD.ED 11:14
DX: M25.512 Pain in left shoulder (principal); R07.81 Pleurodynia; E78.00 Pure hypercholesterolemia, unspecified; I10 Essential (primary) hypertension; K21.9 Gastro-esophageal reflux disease without esophagitis; M19.90 Unspecified osteoarthritis, unspecified site; Z88.8 Allergy status to other drugs, medicaments and biological substances; Z88.5 Allergy status to narcotic agent; Z79.82 Long term (current) use of aspirin; Z79.899 Other long term (current) drug therapy
CPT/HCPCS: 71101; 73030; 93005; 96372; 99283; J1885

== ENCOUNTER 2023-03-07 17:55 | Emergency (ER) | payer MEDICARE, OTHER ==
[2023-03-07] MEDS ORDERED: Sodium Chloride 0.9% 10 ML Syringe FLUSH PRN (17:57)
[2023-03-07 18:46] LABS: BASOPHILS ABSOLUTE AUTO 0.01 K/mm3 (0.01-0.08); BASOPHILS PERCENT AUTO 0.1 % (0.1-1.2); EOSINOPHILS ABSOLUTE AUTO 0.25 K/mm3 (0.04-0.36); EOSINOPHILS PERCENT AUTO 1.7 (0.7-5.8); HEMATOCRIT 41.7 % (34.1-44.9); HEMOGLOBIN 13.6 gm/dl (11.2-15.7); IMMATURE GRAN ABSOLUTE AUTO 0.03 K/mm3 (0.00-0.10); IMMATURE GRAN PERCENT AUTO 0.2 % (<=1.0); LYMPHOCYTES ABSOLUTE AUTO 1.43 K/mm3 (1.18-3.74); LYMPHOCYTES PERCENT AUTO 9.7 % (19.3-51.7); MEAN CORPUSCULAR HEMOGLOBIN 30.1 pg (25.6-32.2); MEAN CORPUSCULAR HGB CONC 32.6 g/dl (32.2-35.5); MEAN CORPUSCULAR VOLUME 92.3 fl (79.4-94.8); MEAN PLATELET VOLUME 9.5 fl (9.4-12.3); MONOCYTES ABSOLUTE AUTO 0.64 K/mm3 (0.24-0.36); MONOCYTES PERCENT AUTO 4.4 % (4.7-12.5); NEUTROPHILS ABSOLUTE AUTO 12.33 K/mm3 (1.56-6.13); NEUTROPHILS PERCENT AUTO 83.9 % (34.0-71.1); PLATELET COUNT,PLT 400 K/mm3 (182-369); RED BLOOD CELL COUNT 4.52 M/mm3 (3.98-5.22); WHITE BLOOD CELL COUNT,WBC 14.69 K/mm3 (3.98-10.04)
[2023-03-07 19:06] LABS: A/G RATIO 0.9 (1-2); ALBUMIN 3.4 g/dl (3.4-5.0); ANION GAP 11.3 (5-15); BILIRUBIN TOTAL 0.7 mg/dL (0.2-1.0); CALCIUM 8.8 mg/dL (8.5-10.1); CREATININE 0.8 mg/dL (0.55-1.02); EST CRCL DRUG DOSING (CG) 50.26 mL/min; POTASSIUM,K 3.3 mEq/L (3.5-5.1); PROTEIN TOTAL,TP 7.1 g/dl (6.4-8.2)
[2023-03-07 19:43] VITALS: BP 164/84; PULSE 91
== END 2023-03-07 19:42 | disposition home or self-care (01) ==
LOC: JD.ED 17:55
DX: R10.31 Right lower quadrant pain (principal); G89.18 Other acute postprocedural pain; E78.00 Pure hypercholesterolemia, unspecified; I10 Essential (primary) hypertension; K21.9 Gastro-esophageal reflux disease without esophagitis; M19.90 Unspecified osteoarthritis, unspecified site; Z86.73 Personal history of transient ischemic attack (TIA), and cerebral infarction without residual deficits; Z79.82 Long term (current) use of aspirin; Z79.899 Other long term (current) drug therapy; Z88.5 Allergy status to narcotic agent; Z88.8 Allergy status to other drugs, medicaments and biological substances
CPT/HCPCS: 36415; 80053; 85025; 99284

== ENCOUNTER 2023-04-18 21:15 | Emergency (ER) | payer MEDICARE, OTHER ==
[2023-04-18] MEDS ORDERED: Aspirin 325 MG Tab.EC PO ONE (21:29)
[2023-04-18 21:36] LABS: BASOPHILS PERCENT AUTO 0.4 % (0.0-1.0); EOSINOPHILS ABSOLUTE AUTO 0.2 K/mm3 (0.0-0.4); EOSINOPHILS PERCENT AUTO 1.5 % (0.0-6.0); HEMATOCRIT 40.7 % (37.0-47.0); HEMOGLOBIN 13.5 gm/dl (12.0-16.0); IMMATURE GRAN ABSOLUTE AUTO 0.03 K/mm3 (0.00-0.05); IMMATURE GRAN PERCENT AUTO 0.3 % (0.0-0.4); LYMPHOCYTES PERCENT AUTO 20.2 % (24.0-44.0); MEAN CORPUSCULAR HEMOGLOBIN 30.3 pg (28.0-32.0); MEAN CORPUSCULAR HGB CONC 33.2 g/dl (32.0-36.0); MEAN CORPUSCULAR VOLUME 91.3 fl (83.0-99.0); MEAN PLATELET VOLUME 9.4 fl (9.4-12.3); MONOCYTES ABSOLUTE AUTO 0.8 K/mm3 (0.0-0.8); MONOCYTES PERCENT AUTO 8.3 % (0.0-8.0); NEUTROPHILS ABSOLUTE AUTO 6.8 K/mm3 (1.8-7.7); NEUTROPHILS PERCENT AUTO 69.3 % (41.0-71.0); PLATELET COUNT,PLT 327 K/mm3 (150-400); RED BLOOD CELL COUNT 4.46 M/mm3 (4.10-5.30); WHITE BLOOD CELL COUNT,WBC 9.86 K/mm3 (3.9-11.3)
[2023-04-18] MEDS ORDERED: Aspirin 81 MG Tab.Chew PO ONE (21:47)
[2023-04-18 21:55] LABS: INR 0.95; PROTHROMBIN TIME 10.2 SECONDS (9.7-12.0)
[2023-04-18 21:56] LABS: D-DIMER QUANTITATIVE 0.38 mg/L (0.19-0.50)
[2023-04-18 22:02] LABS: ALANINE AMINOTRANSFERASE,ALT 14 U/L (14-59); ALBUMIN 3.5 g/dl (3.4-5.0); ALKALINE PHOSPHATASE 62 U/L (46-116); ANION GAP 12.1 (5-15); ASPARTATE AMNIOTRANSFERASE,AST 11 U/L (15-37); BILIRUBIN TOTAL 0.3 mg/dL (0.2-1.0); BLOOD UREA NITROGEN,BUN 12 mg/dL (7-18); BUN/CREATININE RATIO 17.1 (14-18); CARBON DIOXIDE,CO2 29 mEq/L (21-32); CHLORIDE,CL 106 mEq/L (98-107); CREATININE 0.7 mg/dL (0.55-1.02); EST CRCL DRUG DOSING (CG) 59.04 mL/min; ESTIMATED GFR 90 mL/min (>60); GLUCOSE RANDOM 189 mg/dL (70-99); POTASSIUM,K 3.1 mEq/L (3.5-5.1); PROTEIN TOTAL,TP 7.1 g/dl (6.4-8.2); SODIUM,NA 144 mEq/L (136-145); TROPONIN I HIGH SENSITIVITY < 4 pg/mL (<=51)
[2023-04-18] MEDS ORDERED: Potassium Chloride 20 MEQ Tab.ER PO ONE (22:20)
[2023-04-18 23:08] VITALS: BP 140/75; PULSE 78
== END 2023-04-18 23:06 | disposition home or self-care (01) ==
LOC: JD.ED 21:15
DX: R07.89 Other chest pain (principal); E87.6 Hypokalemia; E78.00 Pure hypercholesterolemia, unspecified; I10 Essential (primary) hypertension; K21.9 Gastro-esophageal reflux disease without esophagitis; M19.90 Unspecified osteoarthritis, unspecified site; Z86.73 Personal history of transient ischemic attack (TIA), and cerebral infarction without residual deficits; Z79.82 Long term (current) use of aspirin; Z88.5 Allergy status to narcotic agent; Z88.8 Allergy status to other drugs, medicaments and biological substances
CPT/HCPCS: 36415; 71045; 80053; 84484; 85025; 85379; 85610; 93005; 99285; A9270; 93010; 99283